=== PATIENT | male | born 1940 | race Caucasian/White ===

== ENCOUNTER 2019-05-03 08:54 | Day surgery (SDC) | payer BC ==
[2019-05-02 13:33] VITALS: BMI 27.2
[2019-05-03] MEDS ORDERED: PATIENT'S OWN MEDICATION (NON-FORMULARY) (Acetaminophen [Tylenol] 650 MG) PO PRN (11:03)
[2019-05-03] MEDS ORDERED: PATIENT'S OWN MEDICATION (NON-FORMULARY) (Cetirizine Hcl 10 MG) PO SCH (11:15)
[2019-05-03] MEDS ORDERED: MIDAZOLAM HCL 2 MG/2 ML SINGLE DOSE VIAL ONE (11:26)
[2019-05-03] MEDS ORDERED: ceFAZolin SODIUM 1 GM VIAL IVPB ONE (11:31)
[2019-05-03] MEDS ORDERED: LIDOCAINE HCL/PF 2% SDV 5ML VIAL ONE (11:33)
[2019-05-03] MEDS ORDERED: PROPOFOL 20 ML ONE (11:33)
[2019-05-03] MEDS ORDERED: IOHEXOL 300 MG/ML INFUS..BTL IV ONE (11:38)
[2019-05-03] MEDS ORDERED: ceFAZolin SODIUM 1 GM VIAL ONE (11:48)
[2019-05-03] MEDS ORDERED: KETOROLAC TROMETHAMINE 30 MG/1 ML VIAL ONE (12:01)
--- NOTE | 2019-05-03 13:17 | OP ---
DATE OF OPERATION: 05/03/2019 PREOPERATIVE DIAGNOSIS: Right ureteral calculus. POSTOPERATIVE DIAGNOSIS: Right ureteral calculus. PROCEDURE: Right electrohydraulic shock-wave lithotripsy. HISTORY: This is an 78-year-old gentleman with a history of renal colic preoperatively found to have a 5-mm midureteral stone on CAT scan. After discussing treatment options, patient elected to undergo the above stated procedure. Risks, benefits of treatment, alternative treatment discussed in detail. All questions were answered. BRIEF OPERATIVE NOTE: Patient was brought into the operating room, placed in supine position. The stone was unclear in the midureteral position, so approximately 50 mL of radiopaque contrast was administered intravenously. There was a moderate degree of hydronephrosis, and the stone was visualized in approximately L4 position. Approximately 3000 shocks were delivered in electromagnetic fashion. Patient tolerated the procedure well and was brought to recovery room in stable and satisfactory condition. SAMINA OCASIO M.D. [id number]
[2019-05-03 15:09] VITALS: TEMP 97.9
[2019-05-03 15:14] VITALS: BP 140/78; PULSE 90
[2019-05-04] MEDS ORDERED: PREDNISOLONE PO SCH (10:00)
[2019-05-04] MEDS ORDERED: TAMSULOSIN HCL 0.4 MG CAP PO SCH (10:00)
[2019-05-04] MEDS ORDERED: RIVAROXABAN 20 MG TABLET PO SCH (10:00)
== END 2019-05-03 13:40 | disposition home or self-care (01) ==
LOC: JASU-SURG 08:54
PROVIDERS: ATTEND Urology
PROC: 0TF6XZZ Fragmentation in Right Ureter, External Approach (ICD-10-PCS; principal; 2019-05-03 10:15)
DX: N20.1 Calculus of ureter (principal)